=== PATIENT | female | born 1980 ===

== ENCOUNTER 2016-08-28 16:06 | Emergency (ER) | payer OTHER ==
[2016-08-28 16:25] VITALS: BP 117/82
--- NOTE | 2016-08-28 16:36 | ED GENERAL ADULT ---
History of Present Illness General Chief Complaint: General Adult Stated Complaint: LEFT HIP NUMBNESS X10 DAYS, +NV, DIZZINESS Source: patient Exam Limitations: no limitations Vital Signs & Intake/Output Vital Signs & Intake/Output Vital Signs Date Time Temp Pulse Resp B/P B/P Pulse O2 O2 Flow FiO2 Mean Ox Delivery Rate 08/28 1625 99.3 107 15 117/82 99 Room Air Room Air Allergies Coded Allergies: clams (HIVES FOR A WEEK 08/28/16) Reconcile Medications Methylprednisolone. (Medrol) 4 MG TAB.DS.PK 1 DP PO AD INFLAMMATION/ radiculopathy Multivitamin (Multi-Day Vitamins) 1 EACH TABLET 1 TAB PO DAILY SUPPLEMENT ( Reported) Ondansetron (Zofran Odt) 4 MG TAB.RAPDIS 1 TAB SL TID PRN nausea Tramadol HCl 50 MG TABLET 1 TAB PO Q6 PRN pain Triage Note: PT TO ED FOR C/C OF LEFT PELVIC, HIP AND LEG NUMBNESS/TINGLING X 10 DAYS. ALSO COMPLAINS OF NAUSEA, DIZZINESS. DENIES SYMPTOMS. DENIES INJURY/TRAUMA. Triage Nurses Notes Reviewed? yes : No Patient currently breastfeeds: No HPI: Patient is a 36-year-old female presents complaining of low back pain and numbness to her left anterior proximal thigh. Patient reports symptoms onset when she awoke 10 days ago. Patient been lifting weights the day before but does not recall any specific injury. Pain to the low back is a shooting pain that worsens with movement and palpation. Numbness has been continuous no exacerbating or alleviating factors. Patient having associated nausea. Also having 3-5 episodes of dizziness that last approximately 10-15 seconds daily. On patient had a fever up to 101F that improved after taking Aleve. No fever since then. Patient has a history of migraines, has had headaches consistent with her migraines. Patient denies urinary symptoms, abdominal pain, vomiting, numbness in rectum, rashes. (DALE JACINTO,GABO) Past History Travel History Traveled to [place] past 21 day No Medical History Any Pertinent Medical History? see below for history Neurological: migraine EENT: NONE Cardiovascular: NONE Respiratory: NONE Gastrointestinal: NONE Hepatic: NONE Renal: NONE Musculoskeletal: NONE Psychiatric: NONE Endocrine: NONE Blood Disorders: NONE Cancer(s): NONE FOOT SETTER/Reproductive: NONE Surgical History Surgical History: non-contributory Psychosocial History What is your primary language Luxembourgish Tobacco Use: Current Not Daily ETOH Use: occasional use Illicit Drug Use: denies illicit drug use Family History Hx Contributory? No (GABO GALLEGOS) Review of Systems Review of Systems Constitutional: Denies: chills, fever. EENTM: Denies: blurred vision, double vision, visual changes. Respiratory: Denies: cough, short of breath. Cardiovascular: Denies: chest pain. GI: Reports: nausea. Denies: abdominal pain, diarrhea, vomiting. Genitourinary: Reports: no symptoms. Denies: dysuria, hematuria. Musculoskeletal: Reports: see HPI, back pain. Skin: Reports: no symptoms. Neurological/Psychological: Reports: see HPI. Denies: unable to move lower ext, unable to move upper ext, weakness. Hematologic/Endocrine: Denies: bruising, bleeding. Immunologic/Allergic: Denies: splenectomy. (GABO GALLEGOS) Physical Exam Physical Exam General Appearance: well developed/nourished, alert, awake Head: atraumatic, normal appearance Eyes: Bilateral: normal appearance, PERRL, EOMI, other (normal fundoscopic exam). Ears, Nose, Throat: normal pharynx, normal ENT inspection, hearing grossly normal Neck: normal inspection, supple, full range of motion, no midline tenderness Respiratory: normal breath sounds, chest non-tender, no respiratory distress, lungs clear Cardiovascular: regular rate/rhythm Peripheral Pulses: 2+ dorsalis pedis (L) Gastrointestinal: soft, non-tender Back: normal inspection, normal range of motion, lumbar midline and left lumbar paraspinal tenderness Extremities: normal inspection, normal capillary refill, normal range of motion Neurologic/Psych: awake, alert, oriented x 3, normal gait, human resources records clerk II-XII nml as tested, strength 5/5 in all 4 extremities. proximal medial left thigh decreased sensation to light touch and sharp touch. Normal sensation to left mid and distal thigh. normal sensation to left leg, ankle and foot. Skin: normal color, warm/dry Core Measures ACS in differential dx? No CVA/TIA Diagnosis: No Severe Sepsis Present: No Septic Shock Present: No Diagram Body: 1) area of decreased sensation to light and sharp touch. (GABO GALLEGOS) Progress Differential Diagnoses I considered the following diagnoses in my evaluation of the patient: CVA, cauda equina, nerve compression, transverse myelitis, lyme disease, lumbar strain, shingles Plan of Care: Orders Procedure Date/time Status LYME TITRE 08/29 1647 Active COMPREHENSIVE METABOLIC PANEL 08/29 1647 Complete CBC WITHOUT DIFFERENTIAL 08/29 1647 Complete URINE 08/28 1625 Complete URINALYSIS 08/28 1625 Complete Laboratory Tests 08/28/16 1705: Anion Gap 13, Estimated GFR > 60, BUN/Creatinine Ratio 23.3, Glucose 93, Calcium 9.0, Total Bilirubin 0.7, AST 26, ALT 43, Alkaline Phosphatase 64, Total Protein 7.8, Albumin 4.3, Globulin 3.5, Albumin/Globulin Ratio 1.2, CBC w Diff NO MAN DIFF REQ, RBC 4.96, MCV 80.0 L, MCH 26.8 L, RDW 13.4, MPV 7.6, Gran % 69.3, Lymphocytes % 22.9, Monocytes % 6.4, Eosinophils % 1.2, Basophils % 0.2, Absolute Granulocytes 8.8 H, Absolute Lymphocytes 2.9, Absolute Monocytes 0.8 H, Absolute Eosinophils 0.2, Absolute Basophils 0, PUBS MCHC 33.5, Lyme Disease Antibody Pending 08/28/161627: Urine Color STRAW, Urine Clarity CLEAR, Urine pH 6.0, Ur Specific [place] 1.020, Urine Protein NEG, Urine Ketones NEG, Urine Nitrite NEG, Urine Bilirubin NEG, Urine Urobilinogen 0.2, Ur Leukocyte Esterase NEG, Ur Microscopic EXAM NOT REQUIRED, Urine Hemoglobin NEG, Urine Glucose NEG, Urine Test NEGATIVE 08/28/2016 6:04:44 PM: Results discussed with patient. No motor weakness, no incontinence, no saddle anesthesia. Patient does not appear to require emergent transfer for MRI imaging. Discussed with patient that if her symptoms do not improve then she may require MRI imaging. Patient instructed return to the emergency department if worsening. Discussed with Dr. Ramsey (DALE JACINTO,GABO) Diagnostic Imaging: Viewed by Me: CT Scan. Discussed w/RAD: CT Scan. Radiology Impression: PATIENT: KESHAV VALERO PRESENT AGE: 36 PATIENT ACCOUNT NO: [id number] : 78 LOCATION: [facility], [place] ORDERING PHYSICIAN: GABO JACINTO SERVICE DATE: 04/ EXAM TYPE: CAT - CT LUMB SPINE WO IV CONTRAST EXAMINATION: CT LUMBAR SPINE WITHOUT CONTRAST CLINICAL INFORMATION: Midline and left paraspinal lumbar pain and numbness. Proximal left thigh pain and numbness COMPARISON: None TECHNIQUE: Axial images obtained through the lumbar spine. Coronal and sagittal reformatted images are performed at CT scanner DLP: 777.44 mGy-cm FINDINGS: Lumbar vertebrae have normal height and normal alignment. No fracture or bone destruction. No spondylolysis or spondylolisthesis. Sacroiliac joints are normal. No paraspinal soft tissue abnormality. The visualized portions of kidneys are normal. The abdominal aorta is normal. SPINAL LEVELS: T12-L1: Normal. L1-L2: There is minimal degenerative lipping at the anterior endplates of lumbar vertebrae. Lumbar disc height is normal. No focal disc protrusion. No central canal stenosis. Neural foramina are open. Facet joints are normal. L2-L3: Minimal degenerative lipping at the anterior endplates of lumbar vertebrae. Lumbar disc height normal. No focal disc protrusion. No central canal stenosis. Neural foramina are open. Facet joints are normal. L3-L4: Minimal degenerative lipping at the anterior endplates of lumbar vertebrae. Small calcification of the disc. No focal disc protrusion. No central canal stenosis. Neural foramina are open. Facet joints are normal. L4-L5: Small calcifications in the disc. No focal disc protrusion. No central canal stenosis. Neural foramina are open. Facet joints are normal. L5-S1: Small calcifications at the posterior central annular fibers of the disc with slight posterior central bulge of the discs. No focal disc protrusion. No central canal stenosis. Neural foramina open. Facet joints are normal. IMPRESSION: Minimal multilevel degenerative change of the L2-L3 through L5-S1. Disc no focal disc protrusion. No central canal stenosis. Neural foramina are open. DICTATED BY: GE BAILEY MD DATE/TIME DICTATED:08/28/161736 PORCELAIN ENAMELER:BEBETO DATE/TIME TRANSCRIBED:08/28/161736 CONFIDENTIAL, DO NOT COPY WITHOUT APPROPRIATE AUTHORIZATION. <Electronically signed in Other Vendor System> Initial ED EKG: none (DALE JACINTO,GABO) Departure Departure Time of Disposition: 1802 Disposition: HOME OR SELF CARE Condition: Stable Clinical Impression Primary Impression: Lumbar back pain with radiculopathy affecting left lower extremity Referrals: RUPERTO MEDEL,LYNN (PCP/Family) NAOMI MEDEL,GABO [place] Additional Instructions: Follow-up with your primary doctor this upcoming week for further evaluation. Follow-up with Dr. Jean Baptiste(neurosurgeon) if no improvement within 2-3 days. Return to the emergency department if numbness is spreading, you develop weakness, any incontinence, you develop any further fevers, rash develops, or worsening of symptoms Departure Forms: Customer Survey General Discharge Information Prescriptions: Current Visit Scripts Methylprednisolone. (Medrol) 1 DP PO AD #1 DP Ondansetron (Zofran Odt) 1 TAB SL TID PRN nausea #10 TAB Tramadol HCl 1 TAB PO Q6 PRN pain #10 TAB (GABO GALLEGOS) PA/DRY COLOR TESTER Co-Sign Statement Statement: ED Attending supervision documentation- [] I saw and evaluated the patient. I have also reviewed all the pertinent lab results and diagnostic results. I agree with the findings and the plan of care as documented in the PA's/DRY COLOR TESTER's documentation. [X] I have reviewed the ED Record and agree with the PA's/DRY COLOR TESTER's documentation. [] Additions or exceptions (if any) to the PAs/DRY COLOR TESTER's note and plan are summarized below: [] (GISSELL MEDEL,MCKENNA Owens) Critical Care Note Critical Care Note Critical Care Time: non-applicable (GABO GALLEGOS)
[2016-08-28 17:22] LABS: ABSOLUTE BASOPHIL COUNT 0 /CUMM (0.0-0.2); ABSOLUTE EOSINOPHIL COUNT 0.2 /CUMM (0.0-0.7); ABSOLUTE GRANULOCYTE CT 8.8 /CUMM (1.4-6.5); ABSOLUTE LYMPH COUNT 2.9 /CUMM (1.2-3.4); ABSOLUTE MONOCYTE COUNT 0.8 /CUMM (0.10-0.60); BASOPHIL % 0.2 % (0.0-2.0); EOSINOPHIL % 1.2 % (0-5); GRANULOCYTE % 69.3 % (42.2-75.2); HEMATOCRIT 39.7 % (37-47); MEAN CORPUSCULAR HGB 26.8 PG (27.0-31.0); MEAN CORPUSCULAR HGB CONC 33.5 G/DL (33.0-37.0); MEAN PLATELET VOLUME 7.6 FL (7.4-10.4); PLATELET COUNT 309 /CUMM (130-400); RBC DISTRIBUTION WIDTH 13.4 % (11.5-14.5); RED BLOOD CELL CT 4.96 /CUMM (4.20-5.40); WHITE BLOOD CELL COUNT 12.7 /CUMM (4.8-10.8)
[2016-08-28] MEDS ORDERED: MULTI-DAY VITA1 EACH PO (17:42)
--- NOTE | 2016-08-28 17:48 | CT SCAN REPORT ---
EXAMINATION: CT LUMBAR SPINE WITHOUT CONTRAST CLINICAL INFORMATION: Midline and left paraspinal lumbar pain and numbness. Proximal left thigh pain and numbness COMPARISON: None TECHNIQUE: Axial images obtained through the lumbar spine. Coronal and sagittal reformatted images are performed at CT scanner DLP: 777.44 mGy-cm FINDINGS: Lumbar vertebrae have normal height and normal alignment. No fracture or bone destruction. No spondylolysis or spondylolisthesis. Sacroiliac joints are normal. No paraspinal soft tissue abnormality. The visualized portions of kidneys are normal. The abdominal aorta is normal. SPINAL LEVELS: T12-L1: Normal. L1-L2: There is minimal degenerative lipping at the anterior endplates of lumbar vertebrae. Lumbar disc height is normal. No focal disc protrusion. No central canal stenosis. Neural foramina are open. Facet joints are normal. L2-L3: Minimal degenerative lipping at the anterior endplates of lumbar vertebrae. Lumbar disc height normal. No focal disc protrusion. No central canal stenosis. Neural foramina are open. Facet joints are normal. L3-L4: Minimal degenerative lipping at the anterior endplates of lumbar vertebrae. Small calcification of the disc. No focal disc protrusion. No central canal stenosis. Neural foramina are open. Facet joints are normal. L4-L5: Small calcifications in the disc. No focal disc protrusion. No central canal stenosis. Neural foramina are open. Facet joints are normal. L5-S1: Small calcifications at the posterior central annular fibers of the disc with slight posterior central bulge of the discs. No focal disc protrusion. No central canal stenosis. Neural foramina open. Facet joints are normal. IMPRESSION: Minimal multilevel degenerative change of the L2-L3 through L5-S1. Disc no focal disc protrusion. No central canal stenosis. Neural foramina are open.
[2016-08-28] MEDS ORDERED: TRAMADOL HCL50 M1 PO (18:03)
[2016-08-28] MEDS ORDERED: MEDROL4 M2 PO (18:03)
[2016-08-28] MEDS ORDERED: ZOFRAN ODT4 M1 SL (18:03)
== END 2016-08-28 18:13 ==
LOC: ERH 16:06
PROVIDERS: Physician Assistant
DX: M54.16 Radiculopathy, lumbar region (principal)
CPT/HCPCS: 86618; 81003; 81025